=== PATIENT | male | born 1970 | race Two or more races ===

== ENCOUNTER 2023-12-12 04:54 | Emergency (ER) | payer OTHER ==
[~2023-12-12] VITALS: Ht 175.3 cm; Wt 123.0 kg
[2023-12-12] MEDS: MORPHINE SULFATE INJ 2 MG/ml SYRG IM ONE (07:05)
[2023-12-12] MEDS: TETANUS-DIPTH-ACEL PERTUSSIS 0.5ML SYR Tdap IM ONE (07:07)
[2023-12-12] MEDS: NEOMYCIN-BACITRACIN-POLYM UNITDOSE PKG TOP OINT TOP ONE (07:08)
[2023-12-12] MEDS: cloNIDine HCL 0.1 MG TAB PO ONE (07:08)
[2023-12-12 07:21] LABS: Urine Bacteria None Seen /hpf (None Seen)
[2023-12-12 07:37] LABS: Urine Blood Negative /uL (Negative); Urine Budding Yeast OCCASIONAL /hpf (None Seen); Urine Clarity Turbid (Clear); Urine Color Light-Yellow (Yellow); Urine Hyaline Cast FEW /lpf (0 - 2); Urine Protein, UAD TRACE (Negative); Urine Specific Gravity 1.019 (1.001-1.035); Urine Urobilinogen Normal (Negative); Urine WBC 14 /hpf (0 - 3); Urine pH 6.5 (5.0-9.0)
[2023-12-12 07:42] LABS: Basophils # (auto) 0.1 10 ^3/uL (0-0.2); Basophils % (auto) 0.7 % (0.0-2.0); Eosinophils # (auto) 0.1 10 ^3/uL (0-0.8); Hematocrit 43.8 % (41.0-53.0); Lymphocytes # (auto) 1.8 10 ^3/uL (0.4-5.4); Lymphocytes % (auto) 17.6 % (10.0-50.0); Mean Corpuscular Hemoglobin 30.2 pg (28.0-32.0); Mean Corpuscular Hgb Conc. 34.2 g/dL (32.0-36.0); Mean Corpuscular Volume 88.3 fL (80.0-100.0); Monocytes # (auto) 0.7 10 ^3/uL (0-1.3); Neutrophils # (auto) 7.7 10 ^3/uL (1.6-8.6); Neutrophils % (auto) 73.7 % (37.0-80.0); Platelet Count (auto) 219 10^3/uL (140-450); Red Blood Cells 4.96 10^6/uL (4.5-5.90); Red Cell Distribution Width 14.4 % (11.8-14.3); White Blood Cell 10.4 10^3/uL (4.4-10.8)
[2023-12-12 07:52] LABS: Alanine Aminotransferase 30 U/L (7-40); Alkaline Phosphatase 114 U/L (46-116); Calcium 9.4 mg/dL (8.7-10.4); Carbon Dioxide 28 mmol/L (20-30); Chloride 108 mmol/L (98-107); Glucose 119 mg/dL (74-106); Magnesium 2.3 mg/dL (1.6-2.6); Potassium 3.9 mmol/L (3.5-5.1)
[2023-12-12 07:53] LABS: Anion Gap 3 (5-15); Aspartate Aminotransferase 23 U/L (13-40); BUN/Creatinine Ratio 9.9 (10.0-20.0); Bilirubin, Total 0.4 mg/dL (0.2-1.0); Blood Urea Nitrogen 13 mg/dL (9-23); Sodium 139 mmol/L (136-145)
[2023-12-12 07:54] LABS: INR 1.02 (0.9-1.15); Partial Thromboplastin Time 26.9 SEC (24.5-34.5); Prothrombin Time 10.8 sec (9.3-11.8)
[2023-12-12 08:05] VITALS: TEMP 97.8
[2023-12-12 09:09] VITALS: BP 172/113; PULSE 90; RESP 16; O2SAT 100
[2023-12-12] MEDS ORDERED: LISI-707 PO (09:21)
[2023-12-12] MEDS ORDERED: CIPR-173 PO (09:21)
== END 2023-12-12 09:24 | disposition home or self-care (01) ==
LOC: ER 04:54
DX: S61.512A Laceration without foreign body of left wrist, initial encounter (principal); X58.XXXA Exposure to other specified factors, initial encounter; Y93.89 Activity, other specified; Y92.69 Other specified industrial and construction area as the place of occurrence of the external cause; Y99.8 Other external cause status
CPT/HCPCS: 12002; 36415; 71046; 73110; 73130; 80053; 81001; 83735; 83880; 84484; 85025; 85379; 85610; 85730; 90471; 90715; 93005; 96372; 99285; J2270